=== PATIENT | female | born 1975 | race Two or more races ===

== ENCOUNTER → 2024-11-01 | Outpatient (CLI) | payer OTHER, SELFPAY ==
--- NOTE | 2024-11-01 08:28 | XR_ITS ---
Examination: Knee, left , 3 views Technique: Knee AP, lateral, oblique 3 views Date and time of exam: November 01, 2024 0849 hours INDICATIONS: Patient fell at work October 11, 2024 with injury to the knee, knee pain. FINDINGS: No fracture or dislocation No foreign body IMPRESSION: No fracture or dislocation
== END | disposition home or self-care (01) ==
PROVIDERS: PCP Family Medicine; Referring Provider Family Medicine; Visit Provider Family Medicine
DX: S89.92XA Unspecified injury of left lower leg, initial encounter (principal); W19.XXXA Unspecified fall, initial encounter
CPT/HCPCS: 73562

== ENCOUNTER → 2025-02-25 | Outpatient (CLI) | payer OTHER, SELFPAY ==
--- NOTE | 2025-02-25 08:30 | XR_ITS ---
Exam: MRI knee without contrast, left Date and time of exam: February 25, 2025 0935 hours INDICATIONS: Patient fell at work 4 months ago with instability knee pain joint buckling Technique: Multiple axial, coronal, and sagittal sections on the knee have been obtained. T2-Weighted sagittal, fat-suppressed images, TR 3,500, TE 62, T2 weighted coronal fat-saturated images, TR 3,500, TE 62 Proton density sagittal sections, TR 1800, TE 31. T-1 weighted coronal images, TR 524, TE 13.0 Findings: Medial meniscus anterior horn intact. Medial meniscus, body intact. Posterior horn medial meniscus intact. Lateral meniscus anterior horn is intact Lateral meniscus, body is intact Posterior horn lateral meniscus is intact Anterior cruciate ligament moderate to high-grade sprain Posterior cruciate ligament appears intact. Knee effusion is minimal. Quadriceps and patellar tendons appear intact. There is no evidence of tendinosis. Inflammatory change or fracture of Hoffa's fat pad is not seen. Medial patellar facet demonstrates moderate thinning. Lateral patellar facet cartilage demonstrates moderate thinning. Trochlear cartilage demonstrates moderate thinning. Marrow signal adequate. Medial collateral ligament appears intact. No meniscocapsular separation is seen. Illiotibial band and fibular collateral ligament are intact. Biceps femoris tendons appear intact. Medial femoral condylar articular cartilage demonstrates moderate thinning. Lateral femoral condylar articular cartilage demonstratesmoderate thinning. Tibial plateau cartilage demonstrates moderate thinning. Impression: Moderate to high-grade sprain anterior cruciate ligament
== END | disposition home or self-care (01) ==
LOC: SMRI 08:11
PROVIDERS: PCP Nurse Practitioner Family; Referring Provider Nurse Practitioner Family; Visit Provider Nurse Practitioner Family
DX: S83.512A Sprain of anterior cruciate ligament of left knee, initial encounter (principal); W19.XXXA Unspecified fall, initial encounter
CPT/HCPCS: 73721